=== PATIENT | female | born 1960 | race Caucasian/White ===

== ENCOUNTER 2016-10-30 22:30 | Emergency (ER) | payer BC ==
[~2016-10-30] VITALS: Ht 165.1 cm; Wt 96.3 kg
[2016-10-30 22:37] VITALS: BP 144/90; PULSE 66; RESP 18; TEMP 98.3; O2SAT 96
[2016-10-31 00:25] VITALS: BP 140/78; PULSE 60; RESP 18; O2SAT 100
--- NOTE | 2016-10-31 00:56 | PD ---
HPI Chief Complaint: Eye Problems/Injury Time Seen by Provider: 00:38 Travel History International Travel<30 days: No Contact w/Intl Traveler<30days: No Traveled to known affect area: No History of Present Illness HPI The patient is a 56-year-old female that comes from [place]. While she was in [place] 6 months ago she was told she had glaucoma. No treatment was given to her and she did not see an facilities administrator. The patient came to the [facility] and has not seen an facilities administrator. She complains of bilateral eye pain and redness and eye pain for 2 days. PFSH Past Medical History Cardiovascular Problems: Yes Diabetes: Yes Patient Takes Glucophage: No Diminished Hearing: No Glaucoma: Yes Hypertension: Yes Immunizations Current: Yes Tetanus Vaccination: < 5 Years Influenza Vaccination: Yes ?: Not Menopausal: Yes Past Surgical History Section: Yes Hysterectomy: Yes Social History Alcohol Use: No Tobacco Use: No Substance Use: No Review of Systems Except as stated in HPI: all other systems reviewed are Neg Physical Exam Narrative GENERAL: Well-nourished, well-developed patient in minimal apparent distress. Her vital signs show blood pressure 144/90 but otherwise normal.. SKIN: Warm and dry. HEAD: Normocephalic. EYES: No scleral icterus. There is slight conjunctival injection and no other drainage. Pupils are 2 mm bilaterally and react to light. NECK: Supple, trachea midline. No JVD or lymphadenopathy. CARDIOVASCULAR: Regular rate and rhythm without murmurs, gallops, or rubs. RESPIRATORY: Breath sounds equal bilaterally. No accessory muscle use. GASTROINTESTINAL: Abdomen soft, non-tender, nondistended. MUSCULOSKELETAL: No cyanosis, or edema. BACK: Nontender without obvious deformity. No CVA tenderness. Data Data Last Documented VS Vital Signs Date Time Temp Pulse Resp B/P Pulse Ox O2 Delivery O2 Flow Rate FiO2 10/30/16 22:37 98.3 66 18 144/90 96 MDM Medical Decision Making Medical Screen Exam Complete: Yes Emergency Medical Condition: Yes Medical Record Reviewed: Yes Differential Diagnosis Glaucoma, conjunctivitis, viral syndrome Narrative Course The patient needs to see an facilities administrator. Our Johny-Pen does not work tonight. I called Dr. Padmini Short and she graciously stated that she would see the patient in her office later on this morning. Procedures Procedure Narrative We have a new Johny-Pen here, the Schiotz is not available, the Johny-Pen could not give any reliable readings. Physician Communication Physician Communication I discussed the patient with Dr. Padmini Short. Diagnosis Primary Impression: Chronic simple glaucoma Additional Instructions: Call Dr. Padmini Short's office later on this morning. Tell the private secretary that we discussed this patient with her and she will be seen later on today in her office. Disposition: 01 DISCHARGE HOME Condition: Stable Tani Rivera MD Oct 31, 2016 00:56
[2016-10-31] MEDS ORDERED: LOSA100T PO (01:01)
[2016-10-31] MEDS ORDERED: oxyCODONE/ACETAMINOPHEN 7.5 MG/325 MG TAB PO ONE (01:15)
[2016-11-12] MEDS ORDERED: PRED1SUS EACH EYE (08:34)
== END 2016-10-31 01:48 | disposition home or self-care (01) ==
LOC: PHED 22:30
DX: H40.1190 Primary open-angle glaucoma, unspecified eye, stage unspecified (principal); E11.9 Type 2 diabetes mellitus without complications; I10 Essential (primary) hypertension
CPT/HCPCS: 99283